=== PATIENT | male | born 1950 | race Caucasian/White ===

== ENCOUNTER 2017-08-13 09:37 | Observation (INO) | payer MEDICARE ==
[2017-08-13] MEDS ORDERED: Sodium Chloride 0.9% 1,000 ML IV ONE (10:20)
--- NOTE | 2017-08-13 10:21 | C.PDOC ---
History Of Present Illness 67 y/o male c/o lower abdominal pain that radiates to the back and groin since yesterday. Patient took ibuprofen with no relief. Reports a subjective fever and vomiting x4 yesterday. Denies dysuria or diarrhea. No cough or SOB. Time Seen by Provider: 08/13/17 10:14 Chief Complaint (Nursing): Abdominal Pain History Per: Patient History/Exam Limitations: no limitations Onset/Duration Of Symptoms: Days (yesterday) Current Symptoms Are (Timing): Still Present Severity: Mild Quality Of Discomfort: "Pain" Associated Symptoms: Vomiting Recent travel outside of the [place]: No Additional History Per: Patient Past Medical History Reviewed: Historical Data, Nursing Documentation, Vital Signs Vital Signs: Last Vital Signs Temp 98.7 F 08/13/17 13:00 Pulse 60 08/13/17 13:00 Resp 18 08/13/17 13:00 BP 138/77 08/13/17 13:00 Pulse Ox 96 08/13/17 13:55 - Medical History PMH: Depression, Hypercholesterolemia Surgical History: Appendectomy - [facility] Procedures INJECT/INFUSE NEC (11/16/13) Family History: States: Unknown Family Hx - Social History Hx Alcohol Use: Yes Hx Substance Use: No - Immunization History Hx Influenza Vaccination: Yes Review Of Systems Except As Marked, All Systems Reviewed And Found Negative. Constitutional: Positive for: Fever (subjective) Respiratory: Negative for: Cough, Shortness of Breath Gastrointestinal: Positive for: Vomiting, Abdominal Pain. Negative for: Diarrhea Genitourinary: Positive for: Scrotal Pain (Radiation to the groin). Negative for: Dysuria Musculoskeletal: Positive for: Back Pain (radiation of pain) Physical Exam - Physical Exam Appears: Non-toxic, No Acute Distress Skin: Warm (to touch), Dry Head: Atraumatic, Normacephalic Oral Mucosa: Moist Throat: Normal, No Erythema Neck: No Midline Cervical Tenderness, No Paracervical Tenderness, Supple Lymphatic: Normal Exam, No Adenopathy Chest: Symmetrical Cardiovascular: Rhythm Regular, No Murmur, No Other (heaves or thrills) Respiratory: Normal Breath Sounds, No Rales, No Rhonchi, No Wheezing Gastrointestinal/Abdominal: Bowel Sounds ((+) bowel sounds), Soft, Tenderness ( Subjective tenderness to the bilateral lower quadrants), No Guarding Back: No CVA Tenderness Male Genital: Testicular Tenderness (left testicle), Inguinal Tenderness ( tenderness to the epididymis), Circumcised, Other (No hernias noted. normal external inspection) Extremity: Normal ROM, No Pedal Edema, No Other (Clubbing of the lower extremity ) Pulses: Left Dorsalis Pedis: Normal, Right Dorsalis Pedis: Normal Neurological/Psych: Oriented x3 ED Course And Treatment - Laboratory Results Result Diagrams: 08/13/17 10:33 08/13/17 10:33 O2 Sat by Pulse Oximetry: 96 (RA) Pulse Ox Interpretation: Normal - CT Scan/US US testicular Other Rad Studies (CT/US): Interpreted By Me, Read By Radiologist CT/US Interpretation: Testicular US normal. Good flow to both testicles. No evidence of epididymitis. Right hydrocele. CT Abd/Pel w/o Other Rad Studies (CT/US): Interpreted By Me, Read By Radiologist CT/US Interpretation: PROCEDURE: CT Abdomen and Pelvis without Oral or IV contrast. HISTORY: hematuria,abd pain. COMPARISON: None available. TECHNIQUE: Contiguous axial images of the abdomen and pelvis. No oral or IV contrast administered. Coronal and Sagittal reformats generated and reviewed. Radiation dose: Total exam DLP = 657.08 mGy-cm. This CT exam was performed using one or more of the following dose reduction techniques: Automated exposure control, adjustment of the mA and/or kV according to patient size, and/ or use of iterative reconstruction technique. FINDINGS: There is limited evaluation of the solid organs without the administration of IV contrast. LOWER THORAX: Bibasilar atelectasis. There is no visible pleural effusion or pneumothorax. Small hiatal hernia. LIVER: Unremarkable unenhanced appearance. GALLBLADDER AND BILE DUCTS: Unremarkable unenhanced appearance. PANCREAS: Unremarkable unenhanced appearance. SPLEEN: Unremarkable unenhanced appearance. ADRENALS: Unremarkable unenhanced appearance. KIDNEYS AND URETERS: 8 mm mid left ureteral calculus (series 3, image 102) with proximal hydroureteronephrosis. No hydronephrosis or obstructing renal calculus. BLADDER: Mildly thick-walled urinary bladder likely exaggerated by under distension. REPRODUCTIVE: The prostate gland measures approximately 3.8 x 4.7 cm. APPENDIX: No secondary signs of acute appendicitis. BOWEL: The stomach is nondistended. Lack of oral contrast limits evaluation for bowel pathology. The bowel loops appear within normal limits of caliber without evidence of intestinal obstruction. PERITONEUM: No significant free fluid. No definite free air. LYMPH NODES: No bulky lymphadenopathy identified. VASCULATURE: No aortic aneurysm. BONES: No acute osseous abnormality is detected. OTHER FINDINGS: Bilateral fat containing inguinal hernia. Tiny umbilical hernia. IMPRESSION: 8 mm mid left ureteral calculus with proximal hydroureteronephrosis. Mildly thick-walled urinary bladder likely exaggerated by under distension. Bibasilar atelectasis. Small hiatal hernia. Medical Decision Making Medical Decision Making: Impression: * lower abdominal pain that radiates to the back and groin since yesterday. Plans: * Blood labs * Morphine * IV fluids * US testicular * CT Abd/Pel w/o contrast DDx: Lower abdominal pain v.s. Epididymitis Labs results showed some signs of hematuria. CT Abd/Pel w/o contrast ordered to rule out possible stones. Disposition Discussed With DraCmmie: Lavelle Ceron - Disposition Disposition: HOSPITALIZED Disposition Time: 13:54 Condition: FAIR - Clinical Impression Clinical Impression: Ureteral colic, Renal insufficiency, mild - Scribe Statement The provider has reviewed the documentation as recorded by the Scribsegundo [email or web address] All medical record entries made by the Pedro were at my direction and personally dictated by me. I have reviewed the chart and agree that the record accurately reflects my personal performance of the history, physical exam, medical decision making, and the department course for this patient. I have also personally directed, reviewed, and agree with the discharge instructions and disposition.
[2017-08-13] MEDS ORDERED: Sodium Chloride 0.9% 1,000 ML ONE (10:34)
[2017-08-13] MEDS ORDERED: Morphine 4 MG/ML VIAL ONE (10:34)
[2017-08-13 10:38] LABS: BASO % 0.3 % (0.0-2.0); HEMATOCRIT 44.4 % (35.0-51.0); LYMPH % 9.6 % (20.0-40.0); MEAN CELL VOLUME 92.4 fL (80.0-94.0); MEAN CORPUSCULAR HEMOGLOBIN 31.7 pg (27.0-31.0); MEAN CORPUSCULAR HGB CONC 34.3 g/dL (33.0-37.0); MEAN PLATELET VOLUME 7.9 fL (7.2-11.7); PLATELET COUNT 195 K/uL (130-400); RED CELL DISTRIBUTION WIDTH 12.6 % (11.5-14.5); WHITE BLOOD COUNT 10.7 K/uL (4.8-10.8)
[2017-08-13 10:42] LABS: RBC URINE 7 /hpf (0-3); URINE BILIRUBIN NEGATIVE (NEGATIVE); URINE BLOOD 1+ (NEGATIVE); URINE COLOR Yellow (YELLOW); URINE GLUCOSE (UA) 1+ mg/dL (Normal); URINE KETONE NEGATIVE (NEGATIVE); URINE LEUKOCYTE ESTERASE NEG Leu/uL (Negative); URINE PROTEIN NEGATIVE (NEGATIVE); URINE UROBILINOGEN NORMAL mg/dL (0.2-1.0); WBC URINE 1 /hpf (0-5)
[2017-08-13 10:53] LABS: POTASSIUM 4.3 mmol/L (3.6-5.2)
[2017-08-13 10:55] LABS: ALB/GLOB RATIO 1.3 (1.0-2.1); BILIRUBIN,TOTAL 0.7 mg/dL (0.2-1.3)
[2017-08-13 10:56] LABS: CALCIUM 8.9 mg/dl (8.6-10.4)
[2017-08-13 11:04] LABS: NEUTROPHIL 88 % (50-75); TOTAL CELLS COUNTED 100
--- NOTE | 2017-08-13 11:29 | US ---
HISTORY: scrotal pain TECHNIQUE: Realtime sonography through the scrotum with color and doppler flow. COMPARISON: None Available. FINDINGS: RIGHT TESTICLE: Measures 4.4 x 2.1 x 2.9 cm. Homogeneous echotexture. Blood flow is demonstrated. RIGHT EPIDIDYMIS: Measures approximately 1.0 x 0.5 x 1.1 cm. LEFT TESTICLE: Measures 3.7 x 2.2 x 3.1 cm. Homogeneous echotexture. Blood flow is demonstrated. LEFT EPIDIDYMIS: Measures approximately 0.8 x 0.9 x 1.3 cm. HYDROCELE: Small right-sided hydrocele. VARICOCELE: None. OTHER FINDINGS: None. IMPRESSION: Small right-sided hydrocele.
--- NOTE | 2017-08-13 13:18 | CT ---
PROCEDURE: CT Abdomen and Pelvis without Oral or IV contrast. HISTORY: hematuria,abd pain COMPARISON: None available. TECHNIQUE: Contiguous axial images of the abdomen and pelvis. No oral or IV contrast administered. Coronal and Sagittal reformats generated and reviewed. Radiation dose: Total exam DLP = 657.08 mGy-cm. This CT exam was performed using one or more of the following dose reduction techniques: Automated exposure control, adjustment of the mA and/or kV according to patient size, and/or use of iterative reconstruction technique. FINDINGS: There is limited evaluation of the solid organs without the administration of IV contrast. LOWER THORAX: Bibasilar atelectasis. There is no visible pleural effusion or pneumothorax. Small hiatal hernia. LIVER: Unremarkable unenhanced appearance. GALLBLADDER AND BILE DUCTS: Unremarkable unenhanced appearance. PANCREAS: Unremarkable unenhanced appearance. SPLEEN: Unremarkable unenhanced appearance. ADRENALS: Unremarkable unenhanced appearance. KIDNEYS AND URETERS: 8 mm mid left ureteral calculus (series 3, image 102) with proximal hydroureteronephrosis. No hydronephrosis or obstructing renal calculus. BLADDER: Mildly thick-walled urinary bladder likely exaggerated by under distension. REPRODUCTIVE: The prostate gland measures approximately 3.8 x 4.7 cm. APPENDIX: No secondary signs of acute appendicitis. BOWEL: The stomach is nondistended. Lack of oral contrast limits evaluation for bowel pathology. The bowel loops appear within normal limits of caliber without evidence of intestinal obstruction. PERITONEUM: No significant free fluid. No definite free air. LYMPH NODES: No bulky lymphadenopathy identified. VASCULATURE: No aortic aneurysm. BONES: No acute osseous abnormality is detected. OTHER FINDINGS: Bilateral fat containing inguinal hernia. Tiny umbilical hernia. IMPRESSION: 8 mm mid left ureteral calculus with proximal hydroureteronephrosis. Mildly thick-walled urinary bladder likely exaggerated by under distension. Bibasilar atelectasis. Small hiatal hernia.
[2017-08-13] MEDS ORDERED: cefTRIAXone IV 1 gm in Dextros 50 ML IVPB ONE (13:58)
--- NOTE | 2017-08-13 15:52 | CP.PCM.HP ---
<Arianna Spaulding - Last Filed: 08/13/17 17:38> History of Present Illness - History of Present Illness History of Present Illness: History and Physical for Dr. Arshad 67yo male with PmHx of hypercholesterolemia and depression that presented to the ED with lower abdominal and middle lower back pain that started yesterday afternoon. Pt states this is the first time that it occurs. Pt describes the pain as constant, dull, non radiating pain. Lying supine makes the pain better and lying to the side makes it worst. Pt admits to four episodes of non bloody vomiting since yesterday, two episodes happening when taking public transportation and two at home. Pt admits to feeling feverish yesterday. Pt denies fever/chills, chest pain or SOB at time of admission. Pt denies nausea, recent vomiting, diarrhea or constipation. Pt denies any dysuria , urgency, polyuria and hematuria. Pt admits to dull left testicular pain that began yesterday along with lower abdominal and back pain. Pt denies any purulent or bloody discharge from the penis. Pt has not had any food since this morning. PMH:Hypercholesteremia, depression Pshx: Appendectomy (1960s) Meds: Rouvastatin 20mg PO QD, Mirtazine 15mg PO QD, Paroxetine 15 mg PO QD All: NKDA FmHx: Mother (HTN) SocHx: 1/2 pack a day x 25 years. Quitted 10 years ago. social alcohol use, 2-3 shots of whiskeys. denies illicit drug use Present on Admission - Present on Admission Any Indicators Present on Admission: No History of DVT/PE: No History of Uncontrolled Diabetes: No Urinary Catheter: No Decubitus Ulcer Present: No Review of Systems - Constitutional Constitutional: As Per HPI Past Patient History - Past Social History Smoking Status: Never Smoked - CARDIAC Hx Hypercholesterolemia: Yes - PSYCHIATRIC Hx Depression: Yes Hx Substance Use: No - SURGICAL HISTORY Hx Appendectomy: Yes - ANESTHESIA Hx Anesthesia: Yes Hx Anesthesia Reactions: No Meds Allergies/Adverse Reactions: Allergies Allergy/AdvReac Type Severity Reaction Status Date / Time No Known Allergies Allergy Unverified 08/13/17 09:43 Physical Exam - Constitutional Appears: Well, Non-toxic, No Acute Distress - Head Exam Head Exam: ATRAUMATIC, NORMOCEPHALIC - Eye Exam Eye Exam: EOMI, Normal appearance - ENT Exam ENT Exam: Mucous Membranes Moist - Respiratory Exam Respiratory Exam: Clear to Auscultation Bilateral, NORMAL BREATHING PATTERN. absent: Rales, Rhonchi, Wheezes - Cardiovascular Exam Cardiovascular Exam: Bradycardia, +S1, +S2. absent: Rubs - GI/Abdominal Exam GI & Abdominal Exam: Hyperactive Bowel Sounds, Normal Bowel Sounds, Soft. absent: Distended - Exam Exam: Testicular Tenderness (patient is tender around epididymis). absent: Scrotal Swelling, Uretheral Discharge, Bladder Distension - Extremities Exam Extremities exam: Positive for: full ROM. Negative for: pedal edema - Back Exam Back exam: NORMAL INSPECTION. absent: CVA tenderness (L), CVA tenderness (R), paraspinal tenderness - Skin Skin Exam: Dry, Intact, Normal Color, Warm Results - Vital Signs Recent Vital Signs: Last Vital Signs Temp 98.2 F 08/13/17 15:02 Pulse 63 08/13/17 15:02 Resp 19 08/13/17 15:02 BP 142/81 08/13/17 15:02 Pulse Ox 95 08/13/17 15:02 - Labs Result Diagrams: 08/13/17 10:33 08/13/17 10:33 Labs: Laboratory Results - last 24 hr 08/13/17 08/13/17 08/13/17 10:33 10:33 10:33 WBC 10.7 RBC 4.80 Hgb 15.2 Hct 44.4 MCV 92.4 MCH 31.7 H MCHC 34.3 RDW 12.6 Plt Count 195 MPV 7.9 Neut % (Auto) 81.1 H Lymph % (Auto) 9.6 L Branch % (Auto) 9.0 Eos % (Auto) 0.0 Baso % (Auto) 0.3 Neut # 8.7 H Lymph # 1.0 Branch # 1.0 H Eos # 0.0 Baso # 0.0 Neutrophils % (Manual) 88 H Band Neutrophils % 2 Lymphocytes % (Manual) 4 L Monocytes % (Manual) 6 Platelet Estimate Normal RBC Morphology Normal Sodium 130 L Potassium 4.3 Chloride 97 L Carbon Dioxide 23 Anion Gap 14 BUN 21 H Creatinine 1.7 H Est GFR ( Amer) 49 Est GFR (Non-Af Amer) 40 Random Glucose 148 H Calcium 8.9 Total Bilirubin 0.7 AST 32 ALT 42 Alkaline Phosphatase 47 Total Protein 7.0 Albumin 3.9 Globulin 3.1 Albumin/Globulin Ratio 1.3 Lipase 79 Urine Color Yellow Urine Clarity Clear Urine pH 5.0 Ur Specific [place] 1.023 Urine Protein Negative Urine Glucose (UA) 1+ H Urine Ketones Negative Urine Blood 1+ H Urine Nitrate Negative Urine Bilirubin Negative Urine Urobilinogen Normal Ur Leukocyte Esterase Neg Urine WBC (Auto) 1 Urine RBC (Auto) 7 H Assessment & Plan - Assessment and Plan (Free Text) Assessment: Nephrolithiasis CT abdomen/pelvis PO/IV contrast: hydronephrosis, stone in ureter, mild bladder thickenin left Testicular pain Testicular ultrasound Right hydrocele Urinalysis positive f/u urine culture UA 08/13 f/u lipid panel Diet: Low salt Diet Symptom Percocet 5-325 Q4H PRN pain Zofran 4mg IVP Q6H PRN Nausea Prophylaxis Heparin 5000 SC Q12H SCDs when laying in bed, patient can ambulate Arianna Spaulding DO PGY1 - Date & Time Date: 08/13/17 Time: 16:10 <Viri Arshad V - Last Filed: 08/14/17 08:09> Results - Vital Signs Recent Vital Signs: Last Vital Signs Temp 97.2 F L 08/13/17 23:16 Pulse 69 08/13/17 23:16 Resp 20 08/13/17 23:16 BP 150/74 08/13/17 23:16 Pulse Ox 96 08/13/17 23:16 - Labs Result Diagrams: 08/13/17 10:33 08/13/17 10:33 Labs: Laboratory Results - last 24 hr 08/13/17 08/13/17 08/13/17 10:33 10:33 10:33 WBC 10.7 RBC 4.80 Hgb 15.2 Hct 44.4 MCV 92.4 MCH 31.7 H MCHC 34.3 RDW 12.6 Plt Count 195 MPV 7.9 Neut % (Auto) 81.1 H Lymph % (Auto) 9.6 L Branch % (Auto) 9.0 Eos % (Auto) 0.0 Baso % (Auto) 0.3 Neut # 8.7 H Lymph # 1.0 Branch # 1.0 H Eos # 0.0 Baso # 0.0 Neutrophils % (Manual) 88 H Band Neutrophils % 2 Lymphocytes % (Manual) 4 L Monocytes % (Manual) 6 Platelet Estimate Normal RBC Morphology Normal Sodium 130 L Potassium 4.3 Chloride 97 L Carbon Dioxide 23 Anion Gap 14 BUN 21 H Creatinine 1.7 H Est GFR ( Amer) 49 Est GFR (Non-Af Amer) 40 Random Glucose 148 H Calcium 8.9 Total Bilirubin 0.7 AST 32 ALT 42 Alkaline Phosphatase 47 Total Protein 7.0 Albumin 3.9 Globulin 3.1 Albumin/Globulin Ratio 1.3 Lipase 79 Urine Color Yellow Urine Clarity Clear Urine pH 5.0 Ur Specific [place] 1.023 Urine Protein Negative Urine Glucose (UA) 1+ H Urine Ketones Negative Urine Blood 1+ H Urine Nitrate Negative Urine Bilirubin Negative Urine Urobilinogen Normal Ur Leukocyte Esterase Neg Urine WBC (Auto) 1 Urine RBC (Auto) 7 H Attending/Attestation - Attestation I have personally seen and examined this patient.: Yes I have fully participated in the care of the patient.: Yes I have reviewed all pertinent clinical information: Yes Notes (Text): This is late computer entry for 08/13/17. Patient seen, examined, and case discussed with day-time resident. Patient seen in [facility] Bed 1 in the Emergency Room with patient's at bedside on . Patient comes in with associated abdominal pain and nausea and vomitting which seems to be resolved when interviewing patient at bedside. Discussed admitting orders with day-time resident. Start IV fluids Start IV antibiotic Symptom relief Urology consult Assessment/Plan 1) Nephrolithiasis; Ureteral colic * CT abdomen/pelvis w/o PO/IV contrast: 8mm mid left ureteral calculus with proximal hydroureteronephrosis. Mildy thick-walled urinary bladder likely exaggerated by under distension. Bibasilar atelectasis. Small hiatal hernia. * Start NS 100cc/hr * Urology (Dr. Romero) hvac refrigeration technician-->contacted by the emergency room * Rocephin 1 gram IV q daily * Urine culture collected on admission * percocet 5/325 1 tab PO Q 4H PRN pain 2) left Testicular pain * Testicular ultrasound Right hydrocele 3) Abnormal UA * f/u urine culture * Rocephin 1 gram IV q daily 4) History of Lipid Disorder * Lipid panel ordered * c/w home medication: Crestor 20mg POqHS 5) History of Depression * c/w home medications: paroxteine 20mg PO daily and Remeron 15mg PO daily * Denies SI/Denies HI 6) Prophylactic measure * Percocet 5-325 Q4H PRN pain * Zofran 4mg IVP Q6H PRN Nausea * Heparin 5000 SC Q12H * SCDs when laying in bed, patient can ambulate
[2017-08-13 18:45] VITALS: RESP 20
[2017-08-13] MEDS ORDERED: PARoxetine 5 mg Tab PO SCH (22:00)
[2017-08-14] MEDS: Oxycodone/Acetaminophen 5/325 mg Tab PO PRN ×4 (00:23→19:41)
[2017-08-14 07:57] LABS: BASO % 0.3 % (0.0-2.0); EOS % 0.1 % (0.0-4.0); HEMATOCRIT 43.3 % (35.0-51.0); LYMPH # 1.2 K/uL (1.0-4.3); LYMPH % 12.2 % (20.0-40.0); MEAN CELL VOLUME 93.3 fL (80.0-94.0); MEAN CORPUSCULAR HEMOGLOBIN 32.1 pg (27.0-31.0); MEAN CORPUSCULAR HGB CONC 34.4 g/dL (33.0-37.0); MEAN PLATELET VOLUME 8.1 fL (7.2-11.7); RED CELL DISTRIBUTION WIDTH 12.9 % (11.5-14.5); WHITE BLOOD COUNT 9.6 K/uL (4.8-10.8)
[2017-08-14 08:43] LABS: POTASSIUM 4.8 mmol/L (3.6-5.2)
[2017-08-14 08:45] LABS: ALB/GLOB RATIO 1.2 (1.0-2.1); BILIRUBIN,TOTAL 0.8 mg/dL (0.2-1.3); TOTAL PROTEIN 6.9 g/dL (6.3-8.3)
[2017-08-14 08:46] LABS: CALCIUM 8.6 mg/dl (8.6-10.4)
[2017-08-14] MEDS: Sodium Chloride 0.9% 1,000 ML IV SCH ×2 (09:42→18:00)
[2017-08-14] MEDS ORDERED: Influenza Vaccine 60 mcg/0.5 mL SYR (4YR UP) IM ONE (10:00)
--- NOTE | 2017-08-14 14:37 | CP.PCM.PN ---
Addendum entered and electronically signed by Arianna Spaulding DO 08/14/17 15:41: per Dr. Mazariegos urine Na Urine K+ Urine Cr B2 microglobulin, Urine Original Note: <Arianna Spaulding - Last Filed: 08/14/17 14:50> Subjective - Date & Time of Evaluation Date of Evaluation: 08/14/17 Time of Evaluation: 14:28 - Subjective Subjective: Progress note for Dr. Arshad Patient seen and examined at bedside. No acute events overnight. Patient was told of his A1c level and that he diabetic. Patient was explained diet changes and told a diabetic body mechanic apprentice was ordered to speak to him about different options for food. Patient denies, fever, chills, nausea, vomiting. patient admits to back pain and abdominal pain, but not worse than yesterday. Objective - Vital Signs/Intake and Output Vital Signs (last 24 hours): Temp Pulse Resp BP Pulse Ox 98.3 F 69 20 145/77 96 08/14/17 08:06 08/14/17 08:06 08/14/17 08:06 08/14/17 08:06 08/14/17 08:06 Intake and Output: 08/14/17 08/14/17 06:59 18:59 Intake Total 540 Balance 540 - Medications Medications: Current Medications Heparin Sodium (Porcine) (Heparin) 5,000 units SC Q12 [facility] Last Admin: 08/14/17 11:24 Dose: 5,000 units Ceftriaxone Sodium 1 gm/ (Sodium Chloride) 100 mls @ 100 mls/hr IVPB DAILY [facility] Last Admin: 08/14/17 11:25 Dose: 100 mls/hr Sodium Chloride (Sodium Chloride 0.9%) 1,000 mls @ 100 mls/hr IV .Q10H [facility] Last Admin: 08/14/17 09:42 Dose: 100 mls/hr Mirtazapine (Remeron) 15 mg PO HS [facility] Ondansetron HCl (Zofran Tab) 4 mg PO Q6H PRN PRN Reason: Nausea/Vomiting Oxycodone/Acetaminophen (Percocet 5/325 Mg Tab) 1 tab PO Q4H PRN PRN Reason: Pain, moderate (4-7) Stop: 08/16/17 15:48 Last Admin: 08/14/17 07:00 Dose: 1 tab Paroxetine HCl (Paxil) 20 mg PO DAILY [facility] Last Admin: 08/14/17 11:24 Dose: 20 mg Pneumococcal Polyvalent Vaccine (Pneumovax 23 Vaccine) 0.5 ml IM .ONCE ONE Stop: 08/15/17 10:01 Rosuvastatin Calcium (Crestor) 20 mg PO HS [facility] Last Admin: 08/13/17 21:46 Dose: 20 mg Tamsulosin HCl (Flomax) 0.4 mg PO DAILY [facility] Last Admin: 08/14/17 11:24 Dose: 0.4 mg - Labs Labs: 08/14/17 07:47 08/14/17 07:47 - Constitutional Appears: Non-toxic - Head Exam Head Exam: NORMAL INSPECTION - Eye Exam Eye Exam: EOMI, Normal appearance - ENT Exam ENT Exam: Mucous Membranes Moist - Neck Exam Neck Exam: Full ROM - Respiratory Exam Respiratory Exam: NORMAL BREATHING PATTERN. absent: Accessory Muscle Use, Respiratory Distress - Cardiovascular Exam Cardiovascular Exam: REGULAR RHYTHM, +S1, +S2. absent: Bradycardia, Tachycardia - GI/Abdominal Exam GI & Abdominal Exam: Soft. absent: Tenderness - Extremities Exam Extremities Exam: Full ROM, Normal Inspection. absent: Pedal Edema - Neurological Exam Neurological Exam: Alert, Awake, Oriented x3 - Psychiatric Exam Psychiatric exam: Normal Affect, Normal Mood - Skin Skin Exam: Dry, Intact, Normal Color, Warm Assessment and Plan - Assessment and Plan (Free Text) Assessment: Nephrolithiasis CT abdomen/pelvis PO/IV contrast: hydronephrosis, stone in ureter, mild bladder thickening IVF NS @ 100cc/hr 08/14 Renal US: f/u 08/14 Abdominal XRAY Abdominal XRAY Urology consult Dr. Ceron Rocephin 1 gm IVPB QD BUN/Cr 08/14 Nephrology consult Left Testicular pain Testicular ultrasound Right hydrocele Urinalysis positive Urine culture UA 08/13 Lipid panel Diabetes: A1c 6.8 Ham Pumper ordered Nutrition consult 08/14 Nephrology consult Diet: Low Salt Diet Symptom Percocet 5-325 Q4H PRN pain Zofran 4mg IVP Q6H PRN Nausea Prophylaxis Heparin 5000 SC Q12H SCDs when laying in bed, patient can ambulate Arianna Eng, DO PGY1 <Viri Arshad V - Last Filed: 08/15/17 00:40> Objective - Vital Signs/Intake and Output Vital Signs (last 24 hours): Temp Pulse Resp BP Pulse Ox 97.6 F 75 20 156/78 H 94 L 08/15/17 00:01 08/15/17 00:01 08/15/17 00:01 08/15/17 00:01 08/15/17 00:01 Intake and Output: 08/14/17 08/15/17 18:59 06:59 Intake Total 1040 1000 Balance 1040 1000 - Medications Medications: Current Medications Heparin Sodium (Porcine) (Heparin) 5,000 units SC Q12 [facility] Last Admin: 08/14/17 22:11 Dose: 5,000 units Ceftriaxone Sodium 1 gm/ (Sodium Chloride) 100 mls @ 100 mls/hr IVPB DAILY [facility] Last Admin: 08/14/17 11:25 Dose: 100 mls/hr Sodium Chloride (Sodium Chloride 0.9%) 1,000 mls @ 100 mls/hr IV .Q10H [facility] Last Admin: 08/14/17 18:00 Dose: 100 mls/hr Mirtazapine (Remeron) 15 mg PO HS [facility] Last Admin: 08/14/17 22:11 Dose: 15 mg Morphine Sulfate (Morphine) 2 mg IVP Q4H PRN PRN Reason: Pain, severe (8-10) Last Admin: 08/14/17 22:12 Dose: 2 mg Ondansetron HCl (Zofran Tab) 4 mg PO Q6H PRN PRN Reason: Nausea/Vomiting Oxycodone/Acetaminophen (Percocet 5/325 Mg Tab) 1 tab PO Q4H PRN PRN Reason: Pain, moderate (4-7) Stop: 08/16/17 15:48 Last Admin: 08/14/17 19:41 Dose: 1 tab Paroxetine HCl (Paxil) 20 mg PO DAILY [facility] Last Admin: 08/14/17 11:24 Dose: 20 mg Pneumococcal Polyvalent Vaccine (Pneumovax 23 Vaccine) 0.5 ml IM .ONCE ONE Stop: 08/15/17 10:01 Rosuvastatin Calcium (Crestor) 20 mg PO [facility] Last Admin: 08/14/17 22:11 Dose: 20 mg Tamsulosin HCl (Flomax) 0.4 mg PO DAILY [facility] Last Admin: 08/14/17 11:24 Dose: 0.4 mg - Labs Labs: 08/14/17 07:47 08/14/17 18:51 Attending/Attestation - Attestation I have personally seen and examined this patient.: Yes I have fully participated in the care of the patient.: Yes I have reviewed all pertinent clinical information, including history, physical exam and plan: Yes Notes (Text): This is late computer entry for 08/14/17. Patient seen, examined and case discussed with day-time resident. Patient seen this morning. Patient reports right quadrant pain. Patient reports mild nausea. Denies vomitting, Denies chest pain/palpitations, patient reports he is urinating. Discussed with urologist, recommended repeat BMP and KUB xray, pending creatinine to determine if patient warrants in patient-cystoscopy or not Patient is newly diagnosed diabetic, a1c:6.8, telehealth nurse educator/body mechanic apprentice referral; recommend diet and exercise modifications c/w IV fluids, pain control, and IV antibiotic Nephrology on consult help appreciated Assessment/Plan 1) Nephrolithiasis; Ureteral colic * CT abdomen/pelvis w/o PO/IV contrast: 8mm mid left ureteral calculus with proximal hydroureteronephrosis. Mildy thick-walled urinary bladder likely exaggerated by under distension. Bibasilar atelectasis. Small hiatal hernia. * Start NS 100cc/hr * Urology (Dr. Romero) economic research assistant-->help appreciated * Rocephin 1 gram IV q daily * Urine culture (08/13) collected on admission * percocet 5/325 1 tab PO Q 4H PRN pain 2) Left Testicular pain * Testicular ultrasound Right hydrocele 3) Abnormal UA * f/u urine culture * Rocephin 1 gram IV q daily 4) Acute Renal Insufficiency * Patient is newly diagnosed diabetic and nephrolithiasis * Urology (Dr. Romero) economic research assistant-->help appreciated * Nephrology (Dr. Mazariegos) on case-->help appreciated * Monitor BUN/Cr * f/u urine culture 5) History of Lipid Disorder * Lipid panel ordered * c/w home medication: Crestor 20mg POqHS 6) History of Depression * c/w home medications: paroxteine 20mg PO daily and Remeron 15mg PO daily * Denies SI/Denies HI 7) Diabetes, newly diagnosed * a1c: 6.8 * Held off statin given LORRI * Ham Pumper referral * telehealth nurse educator * Accuchecks QAC and HS 8) Prophylactic measure * Percocet 5-325 Q4H PRN pain * Zofran 4mg IVP Q6H PRN Nausea * Heparin 5000 SC Q12H * SCDs when laying in bed, patient can ambulate * NS 100cc/hr
--- NOTE | 2017-08-14 16:29 | US ---
PROCEDURE: Ultrasound of the Kidneys HISTORY: bun/cr increase, nephrolithiasis, COMPARISON: CT abdomen and pelvis without oral or IV contrast performed 08/13/17. TECHNIQUE: Sonogram of the kidneys. FINDINGS: RIGHT KIDNEY: Measures: 10.7 x 5.3 x 5.7 cm. No obstructing calculus or hydronephrosis. 3 mm echogenic focus without clear posterior acoustic shadowing suspected to reflect tiny angio myelolipoma as calculus was not evident on CT performed 08/13/17. LEFT KIDNEY: Measures: 12.1 x 5.7 x 5 .3 cm. Mild hydronephrosis. No obstructing calculus identified. OTHER FINDINGS: None. IMPRESSION: Mild left-sided hydronephrosis. No obstructing calculus identified. 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
--- NOTE | 2017-08-14 16:43 | RAD ---
HISTORY: left mi9d ureteral stone on ct COMPARISON: No prior. FINDINGS: BOWEL: Moderate stool retention right colon. No obstruction. No free air. BONES: Normal. OTHER FINDINGS: 8 mm mid left ureteral calculus previously noted on the management liaison CT exam at the L4 level now projects along the inferior left sacroiliac joint level consistent with interval progression in its course along the left ureter IMPRESSION: 8 mm left ureteral calculus has progressed along the left ureteral course
[2017-08-14 19:04] LABS: POTASSIUM 4.8 mmol/L (3.6-5.2)
[2017-08-14 19:06] LABS: ALB/GLOB RATIO 1.2 (1.0-2.1); BILIRUBIN,TOTAL 0.8 mg/dL (0.2-1.3)
[2017-08-14 19:07] LABS: CALCIUM 8.6 mg/dl (8.6-10.4)
--- NOTE | 2017-08-15 00:15 | CON ---
COMPREHENSIVE UROLOGY CONSULTATION DATE: 08/14/2017 TIME OF CONSULTATION: 01:45 p.m. BRIEF HISTORY: The patient is a 67-year-old male from [place] who comes to [facility] ER with a complaints of right lower back pain requiring admission and evaluation on 08/13/2017. The patient had abdominal and pelvic CT stone survey done, which showed a 8 mm mid left ureteral stone with hydronephrosis proximal to the stone. He denies any prior history of any kidney stones or kidney disease. He denies any dysuria or gross hematuria. He does have past medical history of high cholesterol and is currently on Crestor. He is also on Remeron and Paxil for treatment of depression. PAST MEDICAL HISTORY: Includes an appendectomy done 4 years ago. No history of any tobacco use. FAMILY HISTORY: He has no family history of any kidney stone or kidney disease. No history of cancer including prostate cancer. ALLERGIES: NO KNOWN ALLERGIES OF ANY MEDICATIONS. PHYSICAL EXAMINATION: GENERAL: He is well-developed, well-nourished male. He is alert. He is oriented. VITAL SIGNS: His temperature is 98.3, his pulse was 69, his blood pressure 145/77, his respirations are 20 and his O2 sat on room air was 96%. HEENT: Grossly within normal limits. NECK: Supple. Thyroid not palpable. ABDOMEN: Soft, nondistended, non tender. Currently, no definite CVA tenderness except may be 1+ on the right side. No left CVA tenderness. No suprapubic tenderness. LABORATORY DATA: The patient also had a history of some left testicular pain and scrotal ultrasound also done on admission, showed only a small left hydrocele. Otherwise normal scrotal ultrasound. Microbiology showed a urine culture, which showed no growth and his laboratory evaluation, his WBC on admission 08/13/2017 was 10.7 and his WBC today on 08/14/2017 was 9.6. Today, his hemoglobin 14.9, hematocrit 43.3 and platelet count was 187,000. His chem profile today 08/14/2017, shows a sodium of 133, potassium of 4.8, chloride 100, CO2 of 25, BUN and creatinine of 23 and 1.8 respectively with the GFR of 38 indicating chronic kidney disease, stage III. His BUN and creatinine on admission were 21 and 1.7 respectively and his GFR was 40. His glucose today is 99 and his hemoglobin A1c was 6.8, calcium 8.6, AST 31, ALT 39 and his alkaline phosphatase was 50. His triglyceride level was 85, total cholesterol level was 112, LDL was 41 and HDL was 54. Urinalysis on admission 08/13/2017 showed color was yellow, the clarity was clear, pH was 5.0, specific gravity 1.023, protein was negative, glucose was 1+, ketones were negative, blood was 1+, nitrite was negative, bilirubin was negative, urobilinogen normal and leukocyte esterase was negative. There was 1 wbc and 7 rbc's per high power field. DIAGNOSTIC IMPRESSION: For this patient, 1. Left 8 mm mid ureteral stone with proximal hydronephrosis. 2. Chronic kidney disease, stage III. PLAN: This patient will get a KUB and repeat SMA-7 in the morning to check his kidney function to see if it remains stable. If the creatinine starts to rise or the GFR decreases the patient may need a cystoscopy with a left ureteral stent. Otherwise, the patient is a candidate for straight left renal [facility] at [facility] for his mid ureteral 8 mm stone. Lavelle Ceron MD [facility]
[2017-08-15] MEDS: Sodium Chloride 0.9% 1,000 ML IV SCH ×3 (04:00→13:01)
[2017-08-15 08:04] LABS: BASO % 0.2 % (0.0-2.0); HEMATOCRIT 42.2 % (35.0-51.0); MEAN CELL VOLUME 92.9 fL (80.0-94.0); MEAN CORPUSCULAR HEMOGLOBIN 31.9 pg (27.0-31.0); MEAN CORPUSCULAR HGB CONC 34.4 g/dL (33.0-37.0); MEAN PLATELET VOLUME 8.3 fL (7.2-11.7); MONO # 0.9 K/uL (0.0-0.8); MONO % 8.6 % (0.0-10.0); PLATELET COUNT 179 K/uL (130-400); RED CELL DISTRIBUTION WIDTH 12.7 % (11.5-14.5); WHITE BLOOD COUNT 10.7 K/uL (4.8-10.8)
[2017-08-15 08:07] VITALS: PULSE 76
[2017-08-15 08:27] LABS: POTASSIUM 4.3 mmol/L (3.6-5.2)
[2017-08-15 08:29] LABS: BILIRUBIN,TOTAL 0.8 mg/dL (0.2-1.3)
[2017-08-15 08:30] LABS: ALB/GLOB RATIO 1.2 (1.0-2.1); CALCIUM 8.3 mg/dl (8.6-10.4); MAGNESIUM 1.8 mg/dL (1.6-2.3)
[2017-08-15 08:38] LABS: CREATININE, RANDOM URINE 104.4 mg/dL
--- NOTE | 2017-08-15 09:22 | CP.PCM.PN ---
Subjective - Date & Time of Evaluation Date of Evaluation: 08/15/17 Time of Evaluation: 09:22 Objective - Vital Signs/Intake and Output Vital Signs (last 24 hours): Temp Pulse Resp BP Pulse Ox 98.6 F 76 20 167/76 H 95 08/15/17 08:06 08/15/17 08:06 08/15/17 08:06 08/15/17 08:06 08/15/17 08:06 Intake and Output: 08/15/17 08/15/17 06:59 18:59 Intake Total 1800 Output Total 950 Balance 850 - Medications Medications: Current Medications Heparin Sodium (Porcine) (Heparin) 5,000 units SC Q12 [facility] Last Admin: 08/14/17 22:11 Dose: 5,000 units Ceftriaxone Sodium 1 gm/ (Sodium Chloride) 100 mls @ 100 mls/hr IVPB DAILY [facility] Last Admin: 08/14/17 11:25 Dose: 100 mls/hr Sodium Chloride (Sodium Chloride 0.9%) 1,000 mls @ 100 mls/hr IV .Q10H [facility] Last Admin: 08/15/17 05:51 Dose: 100 mls/hr Mirtazapine (Remeron) 15 mg PO HS [facility] Last Admin: 08/14/17 22:11 Dose: 15 mg Morphine Sulfate (Morphine) 2 mg IVP Q4H PRN PRN Reason: Pain, severe (8-10) Last Admin: 08/15/17 05:43 Dose: 2 mg Ondansetron HCl (Zofran Tab) 4 mg PO Q6H PRN PRN Reason: Nausea/Vomiting Oxycodone/Acetaminophen (Percocet 5/325 Mg Tab) 1 tab PO Q4H PRN PRN Reason: Pain, moderate (4-7) Stop: 08/16/17 15:48 Last Admin: 08/14/17 19:41 Dose: 1 tab Paroxetine HCl (Paxil) 20 mg PO DAILY [facility] Last Admin: 08/14/17 11:24 Dose: 20 mg Pneumococcal Polyvalent Vaccine (Pneumovax 23 Vaccine) 0.5 ml IM .ONCE ONE Stop: 08/15/17 10:01 Rosuvastatin Calcium (Crestor) 20 mg PO HS [facility] Last Admin: 08/14/17 22:11 Dose: 20 mg Tamsulosin HCl (Flomax) 0.4 mg PO DAILY [facility] Last Admin: 08/14/17 11:24 Dose: 0.4 mg - Labs Labs: 08/15/17 07:48 08/15/17 07:48 - Constitutional Appears: Non-toxic - Head Exam Head Exam: NORMAL INSPECTION - Eye Exam Eye Exam: EOMI, Normal appearance - ENT Exam ENT Exam: Mucous Membranes Moist - Neck Exam Neck Exam: Full ROM - Respiratory Exam Respiratory Exam: NORMAL BREATHING PATTERN. absent: Accessory Muscle Use, Respiratory Distress - Cardiovascular Exam Cardiovascular Exam: REGULAR RHYTHM, +S1, +S2. absent: Bradycardia, Tachycardia - GI/Abdominal Exam GI & Abdominal Exam: Distended, Soft, Tenderness (patient has pain on deep palpation. no rebound tenderness). absent: Guarding, Rigid - Extremities Exam Extremities Exam: Full ROM, Normal Inspection. absent: Pedal Edema - Back Exam Back Exam: Full ROM Additional comments: tenderness to palpation of the left lumbar region - Neurological Exam Neurological Exam: Alert, Awake, Oriented x3 - Psychiatric Exam Psychiatric exam: Normal Affect, Normal Mood - Skin Skin Exam: Dry, Intact, Normal Color, Warm Assessment and Plan - Assessment and Plan (Free Text) Assessment: Patient is for discharge today per Urology to [facility]. Assessment: Nephrolithiasis CT abdomen/pelvis PO/IV contrast: hydronephrosis, stone in ureter, mild bladder thickening IVF NS @ 100cc/hr 08/14 Renal US: f/u 08/14 Abdominal XRAY Abdominal XRAY Urology consult Dr. Osmany Godinez 1 gm IVPB QD f/u urology recommendations: patient can go home and [facility]. The center is aware of patient already BUN/Cr elevated, trending down 08/14 Nephrology consult Left Testicular pain Testicular ultrasound Right hydrocele Urinalysis positive Urine culture UA 08/13 Lipid panel Constipation lactulose 30ml once Miralax 17 gm once Diabetes: A1c 6.8 Mechanical Assembly ordered Nutrition consult 08/14 Nephrology consult Diet: Low Salt Diet Symptom Percocet 5-325 Q4H PRN pain Zofran 4mg IVP Q6H PRN Nausea Prophylaxis Heparin 5000 SC Q12H SCDs when laying in bed, patient can ambulate Arianna Eng, DO PGY1
[2017-08-15 09:58] LABS: BASOPHIL 2 % (0-2); NEUTROPHIL 78 % (50-75); TOTAL CELLS COUNTED 100
--- NOTE | 2017-08-15 09:59 | CP.PCM.CON ---
History of Present Illness - History of Present Illness History of Present Illness: 67 yo M w/ pmh of hyperlipidemia, nephrolithiasis, presented to ED with onset of nausea/vomting and bilateral lower back pain since past 2 days; found to have L ureteral stone and mild/moderate hydronephrosis; nephrology being consulted for renal insufficiency; Patient reports having had the above symptoms previously, occuring every "7 months"; this time, low back pain was bilateral and radiated forward to groin area; also with several episodes of vomiting but able to consume some PO intake today; at time of encounter, patient was in severe pain despite having received percocet shortly before; Patient denies any dysuria or change in urinary frequency; denies any shortness of breath or palpitations but reports chest pain on coughing; Patient reports being told about having kidney stones many years ago but has not had f/u in that regard; he otherwise follows regularly with his PMD (Dr. Myron Dyson) with last visit within past few weeks at which time everything was reportedly unremarkable; Review of Systems - Constitutional Constitutional: Fever. absent: Chills - EENT Eyes: absent: Change in Vision Nose/Mouth/Throat: absent: Sore Throat - Cardiovascular Cardiovascular: absent: Dyspnea, Dyspnea on Exertion, Palpitations - Respiratory Respiratory: Cough - Gastrointestinal Gastrointestinal: As Per HPI - Genitourinary Genitourinary: As Per HPI - Reproductive: Male Additional comments: pain radiating to L testicle; - Musculoskeletal Musculoskeletal: absent: Arthralgias - Neurological Neurological: absent: Dizziness Past Patient History - Past Medical History & Family History Past Medical History?: Yes - Past Social History Smoking Status: Never Smoked - CARDIAC Hx Hypercholesterolemia: Yes - MUSCULOSKELETAL/RHEUMATOLOGICAL Hx Falls: No - PSYCHIATRIC Hx Depression: Yes Hx Substance Use: No - SURGICAL HISTORY Hx Appendectomy: Yes - ANESTHESIA Hx Anesthesia: Yes Hx Anesthesia Reactions: No Meds Allergies/Adverse Reactions: Allergies Allergy/AdvReac Type Severity Reaction Status Date / Time No Known Allergies Allergy Unverified 08/13/17 09:43 - Medications Medications: Current Medications Heparin Sodium (Porcine) (Heparin) 5,000 units SC Q12 [facility] Last Admin: 08/14/17 22:11 Dose: 5,000 units Ceftriaxone Sodium 1 gm/ (Sodium Chloride) 100 mls @ 100 mls/hr IVPB DAILY [facility] Last Admin: 08/14/17 11:25 Dose: 100 mls/hr Sodium Chloride (Sodium Chloride 0.9%) 1,000 mls @ 100 mls/hr IV .Q10H [facility] Last Admin: 08/15/17 05:51 Dose: 100 mls/hr Mirtazapine (Remeron) 15 mg PO [facility] Last Admin: 08/14/17 22:11 Dose: 15 mg Ondansetron HCl (Zofran Tab) 4 mg PO Q6H PRN PRN Reason: Nausea/Vomiting Oxycodone/Acetaminophen (Percocet 5/325 Mg Tab) 1 tab PO Q4H PRN PRN Reason: Pain, moderate (4-7) Stop: 08/16/17 15:48 Last Admin: 08/14/17 19:41 Dose: 1 tab Paroxetine HCl (Paxil) 20 mg PO DAILY [facility] Last Admin: 08/14/17 11:24 Dose: 20 mg Pneumococcal Polyvalent Vaccine (Pneumovax 23 Vaccine) 0.5 ml IM .ONCE ONE Stop: 08/15/17 10:01 Rosuvastatin Calcium (Crestor) 20 mg PO [facility] Last Admin: 08/14/17 22:11 Dose: 20 mg Tamsulosin HCl (Flomax) 0.4 mg PO DAILY [facility] Last Admin: 08/14/17 11:24 Dose: 0.4 mg Physical Exam - Constitutional Appears: In Acute Distress - Head Exam Head Exam: NORMAL INSPECTION - Eye Exam Eye Exam: Normal appearance. absent: Scleral icterus - ENT Exam ENT Exam: Mucous Membranes Moist - Respiratory Exam Respiratory Exam: Clear to Auscultation Bilateral, NORMAL BREATHING PATTERN. absent: Rales, Rhonchi, Wheezes, Respiratory Distress - Cardiovascular Exam Cardiovascular Exam: REGULAR RHYTHM, +S1, +S2 - GI/Abdominal Exam GI & Abdominal Exam: Soft. absent: Distended, Tenderness - Exam Additional comments: No CVA tenderness; - Extremities Exam Extremities exam: Positive for: pedal pulses present Additional comments: no leg edema; - Neurological Exam Neurological exam: Alert, Altered, Oriented x3 - Skin Skin Exam: Normal Color, Warm Results - Vital Signs Recent Vital Signs: Last Vital Signs Temp 98.6 F 08/15/17 08:06 Pulse 76 08/15/17 08:06 Resp 20 08/15/17 08:06 BP 167/76 H 08/15/17 08:06 Pulse Ox 95 08/15/17 08:06 - Labs Result Diagrams: 08/15/17 07:48 08/15/17 07:48 Labs: Laboratory Results - last 24 hr 08/14/17 08/14/17 08/14/17 12:02 16:40 18:51 WBC RBC Hgb Hct MCV MCH MCHC RDW Plt Count MPV Neut % (Auto) Lymph % (Auto) [place] % (Auto) Eos % (Auto) Baso % (Auto) Neut # Lymph # [place] # Eos # Baso # Sodium 132 Potassium 4.8 Chloride 98 Carbon Dioxide 24 Anion Gap 14 BUN 20 Creatinine 1.8 H Est GFR ( Amer) 46 Est GFR (Non-Af Amer) 38 POC Glucose (mg/dL) 99 129 H Random Glucose 116 H Calcium 8.6 Magnesium Total Bilirubin 0.8 AST 33 ALT 43 Alkaline Phosphatase 50 Total Protein 7.0 Albumin 3.9 Globulin 3.2 Albumin/Globulin Ratio 1.2 Ur Random Creatinine U Random Total Protein Ur Random Sodium Ur Random Potassium Urine Microalbumin 08/14/17 08/15/17 08/15/17 21:54 06:55 07:48 WBC 10.7 RBC 4.54 Hgb 14.5 Hct 42.2 MCV 92.9 MCH 31.9 H MCHC 34.4 RDW 12.7 Plt Count 179 MPV 8.3 Neut % (Auto) 82.2 H Lymph % (Auto) 9.0 L [place] % (Auto) 8.6 Eos % (Auto) 0.0 Baso % (Auto) 0.2 Neut # 8.8 H Lymph # 1.0 [place] # 0.9 H Eos # 0.0 Baso # 0.0 Sodium Potassium Chloride Carbon Dioxide Anion Gap BUN Creatinine Est GFR ( Amer) Est GFR (Non-Af Amer) POC Glucose (mg/dL) 155 H 123 H Random Glucose Calcium Magnesium Total Bilirubin AST ALT Alkaline Phosphatase Total Protein Albumin Globulin Albumin/Globulin Ratio Ur Random Creatinine U Random Total Protein Ur Random Sodium Ur Random Potassium Urine Microalbumin 08/15/17 08/15/17 08/15/17 07:48 08:16 08:16 WBC RBC Hgb Hct MCV MCH MCHC RDW Plt Count MPV Neut % (Auto) Lymph % (Auto) [place] % (Auto) Eos % (Auto) Baso % (Auto) Neut # Lymph # [place] # Eos # Baso # Sodium 130 L Potassium 4.3 Chloride 97 L Carbon Dioxide 24 Anion Gap 13 BUN 19 Creatinine 1.6 H Est GFR ( Amer) 52 Est GFR (Non-Af Amer) 43 POC Glucose (mg/dL) Random Glucose 118 H Calcium 8.3 L Magnesium 1.8 Total Bilirubin 0.8 AST 42 ALT 50 Alkaline Phosphatase 54 Total Protein 7.0 Albumin 3.8 Globulin 3.2 Albumin/Globulin Ratio 1.2 Ur Random Creatinine 104.4 U Random Total Protein 9.0 Ur Random Sodium 143 Ur Random Potassium 50.5 Urine Microalbumin 7.5 - Imaging and Cardiology US - abdomen Status: Image reviewed by me Additional comment: Renal US - relatively preserved echogenicity bilaterally; Assessment & Plan (1) Renal insufficiency Assessment and Plan: Baseline renal function unclear, however, unilateral obstructive uropathy (even if severe, which is not the case here) should generally not give LORRI; renal US showing relatively preserved echogenicity of kidneys which implies CKD is relatively mild; -checking random urine for protein, microalbumin and creatinine -further workup pending the above; -avoid NSAIDS for now Status: Acute (2) Nephrolithiasis Assessment and Plan: 8mm ureteral stone with accompanying mild hydronephrosis; possibility that stone will pass spontaneously but due to relatively large size and pain that patient is suffering, should obtain urologic consultation if symptoms remain in morning; -continue IVF w/ NS at 100 cc/hr -agree with flomax 0.4 mg daily -agree with percocet for moderate pain, adding morphine 2 mg IVP q4h prn for severe pain; Status: Acute (3) Diabetes Assessment and Plan: Appears to be newly diagnosed with mild elevation of hgbA1C; doubt that renal insufficiency is due to DM with neg protein on UA but will check for microalbuminuria; Status: Acute (4) Hematuria Assessment and Plan: 1+ on UA but can be explained by ureteral stone; dipstick neg for albumin; monitor; Status: Acute
[2017-08-15] MEDS ORDERED: Pneumococcal 23-Valent Vaccine IM ONE ×2 (10:00→11:30)
[2017-08-15] MEDS ORDERED: Magnesium Citrate Oral SOL (300 ml) PO ONE (11:18)
[2017-08-15] MEDS ORDERED: POLYETHYLENE GLYCOL 3350 17 GM/Dose PACKET PO ONE (11:49)
--- NOTE | 2017-08-15 12:39 | PN ---
DATE: 08/15/2017 SUBJECTIVE: The patient was completely comfortable this morning, voiding urine well. No complain of any abdominal pain. No renal colic. No dysuria or gross hematuria. PHYSICAL EXAMINATION: ABDOMEN: Soft, nondistended, nontender. No CVA tenderness. No suprapubic tenderness. VITAL SIGNS: Temperature is 98.6, pulse is 76, blood pressure 157/76, and respirations are 20. His O2 saturation on room air was 95%. FOLLOWUP LABORATORY EVALUATION: This morning, 08/15/2017, shows CBC with WBC of 10.7, hemoglobin of 14.5, hematocrit of 42.2. He has a platelet count of only 79,000. His chem profile shows a reduced BUN at 19, and also reduced creatinine at 1.6 down from 1.8 with fluid hydration. His GFR is now 52 up from 46. His random glucose is 198. DIAGNOSTIC IMPRESSION: Left mid 8 mm ureteral stone. PLAN: For this patient is to discharge the patient home on Flomax 0.4 mg daily and the patient to followup next week and to be scheduled for left mid ureteral ESWL at [facility]. Lavelle Ceron MD
--- NOTE | 2017-08-15 16:44 | CP.PCM.PN ---
Subjective - Date & Time of Evaluation Date of Evaluation: 08/15/17 Time of Evaluation: 15:45 - Subjective Subjective: 67 yo M w/ pmh of hyperlidpidemia and remote nephrolithiasis, presented with bilateral low back pain and admitted with ureteral stone, LORRI; Patient's back pain improved; was constipated; ready to go home; Objective - Vital Signs/Intake and Output Vital Signs (last 24 hours): Temp Pulse Resp BP Pulse Ox 98.6 F 76 20 167/76 H 95 08/15/17 08:06 08/15/17 08:06 08/15/17 08:06 08/15/17 08:06 08/15/17 08:06 Intake and Output: 08/15/17 08/15/17 06:59 18:59 Intake Total 1800 1150 Output Total 950 Balance 850 1150 - Medications Medications: Current Medications Heparin Sodium (Porcine) (Heparin) 5,000 units SC Q12 [facility] Last Admin: 08/15/17 10:07 Dose: 5,000 units Ceftriaxone Sodium 1 gm/ (Sodium Chloride) 100 mls @ 100 mls/hr IVPB DAILY [facility] Last Admin: 08/15/17 10:06 Dose: 100 mls/hr Sodium Chloride (Sodium Chloride 0.9%) 1,000 mls @ 100 mls/hr IV .Q10H [facility] Last Admin: 08/15/17 13:01 Dose: Not Given Mirtazapine (Remeron) 15 mg PO HS [facility] Last Admin: 08/14/17 22:11 Dose: 15 mg Ondansetron HCl (Zofran Tab) 4 mg PO Q6H PRN PRN Reason: Nausea/Vomiting Last Admin: 08/15/17 15:08 Dose: 4 mg Oxycodone/Acetaminophen (Percocet 5/325 Mg Tab) 1 tab PO Q4H PRN PRN Reason: Pain, moderate (4-7) Stop: 08/16/17 15:48 Last Admin: 08/14/17 19:41 Dose: 1 tab Paroxetine HCl (Paxil) 20 mg PO DAILY [facility] Last Admin: 08/15/17 10:07 Dose: 20 mg Rosuvastatin Calcium (Crestor) 20 mg PO HS [facility] Last Admin: 08/14/17 22:11 Dose: 20 mg Tamsulosin HCl (Flomax) 0.4 mg PO DAILY [facility] Last Admin: 08/15/17 10:06 Dose: 0.4 mg - Labs Labs: 08/15/17 07:48 08/15/17 07:48 - Constitutional Appears: Non-toxic, No Acute Distress - Head Exam Head Exam: NORMAL INSPECTION - Eye Exam Eye Exam: Normal appearance. absent: Scleral icterus - ENT Exam ENT Exam: Mucous Membranes Moist - Respiratory Exam Respiratory Exam: Clear to Ausculation Bilateral. absent: Rales, Rhonchi, Wheezes, Respiratory Distress - Cardiovascular Exam Cardiovascular Exam: REGULAR RHYTHM, +S1, +S2 - GI/Abdominal Exam GI & Abdominal Exam: Soft. absent: Tenderness - Extremities Exam Additional comments: no leg edema; - Neurological Exam Neurological Exam: Alert, Awake - Psychiatric Exam Psychiatric exam: Normal Affect - Skin Skin Exam: Normal Color, Warm Assessment and Plan (1) Renal insufficiency Assessment & Plan: LORRI on very mild CKD; baseline serum creat 1.1 in 06/2017, increased to 1.8 on presentation; somewhat improved today; non-proteinuric kidney disease; NSAID use may have contributed to LORRI; -patient advised to use NSAIDS sparingly Status: Acute (2) Nephrolithiasis Assessment & Plan: L ureteral stone; pain is improved and patient to have urology f/u as outpatient for possible ESWL; -counseled on drinking enough water to achieve 2L urine output daily; -low Na diet; -continue tamsulosin; Status: Acute (3) Diabetes Assessment & Plan: No evidence of diabetic nephropathy at this point but needs to maintain adequate blood sugar control to avoid microvascular changes of DM; Status: Acute (4) Hematuria Assessment & Plan: Likely due to ureteral stone, no proteinuria which is re-assuring; Status: Acute
[2017-08-15 17:30] VITALS: BP 156/83; TEMP 98.4; O2SAT 93
--- NOTE | 2017-08-15 23:00 | CP.PCM.DIS ---
Provider - Provider Date of Admission: 08/13/17 13:48 Attending physician: Viri Arshad DO Consults: Urology Consult: Dr. Ceron Nephrology Consult: Dr. Mazariegos Time Spent in preparation of Discharge (in minutes): 35 Hospital Course - Lab Results Lab Results: Micro Results 08/13/17 10:20 Urine Urine Culture - Final No Growth (<1,000 CFU/ML) Most Recent Lab Values WBC 10.7 K/uL (4.8-10.8) 08/15/17 07:48 RBC 4.54 Mil/uL (4.40-5.90) 08/15/17 07:48 Hgb 14.5 g/dL (12.0-18.0) 08/15/17 07:48 Hct 42.2 % (35.0-51.0) 08/15/17 07:48 MCV 92.9 fL (80.0-94.0) 08/15/17 07:48 MCH 31.9 pg (27.0-31.0) H 08/15/17 07:48 MCHC 34.4 g/dL (33.0-37.0) 08/15/17 07:48 RDW 12.7 % (11.5-14.5) 08/15/17 07:48 Plt Count 179 K/uL (130-400) 08/15/17 07:48 MPV 8.3 fL (7.2-11.7) 08/15/17 07:48 Neut % (Auto) 82.2 % (50.0-75.0) H 08/15/17 07:48 Lymph % (Auto) 9.0 % (20.0-40.0) L 08/15/17 07:48 [place] % (Auto) 8.6 % (0.0-10.0) 08/15/17 07:48 Eos % (Auto) 0.0 % (0.0-4.0) 08/15/17 07:48 Baso % (Auto) 0.2 % (0.0-2.0) 08/15/17 07:48 Neut # 8.8 K/uL (1.8-7.0) H 08/15/17 07:48 Lymph # 1.0 K/uL (1.0-4.3) 08/15/17 07:48 [place] # 0.9 K/uL (0.0-0.8) H 08/15/17 07:48 Eos # 0.0 K/uL (0.0-0.7) 08/15/17 07:48 Baso # 0.0 K/uL (0.0-0.2) 08/15/17 07:48 Neutrophils % (Manual) 78 % (50-75) H 08/15/17 07:48 Band Neutrophils % 2 % (0-2) 08/15/17 07:48 Lymphocytes % (Manual) 11 % (20-40) L 08/15/17 07:48 Monocytes % (Manual) 7 % (0-10) 08/15/17 07:48 Basophils % (Manual) 2 % (0-2) 08/15/17 07:48 Platelet Estimate Normal (NORMAL) 08/15/17 07:48 RBC Morphology Normal 08/13/17 10:33 Sodium 130 mmol/L (132-148) L 08/15/17 07:48 Potassium 4.3 mmol/L (3.6-5.2) 08/15/17 07:48 Chloride 97 mmol/L (98-107) L 08/15/17 07:48 Carbon Dioxide 24 mmol/L (22-30) 08/15/17 07:48 Anion Gap 13 (10-20) 08/15/17 07:48 BUN 19 mg/dL (9-20) 08/15/17 07:48 Creatinine 1.6 mg/dL (0.8-1.5) H 08/15/17 07:48 Est GFR ( Amer) 52 08/15/17 07:48 Est GFR (Non-Af Amer) 43 08/15/17 07:48 POC Glucose (mg/dL) 124 mg/dL (65-110) H 08/15/17 16:22 Random Glucose 118 mg/dL (75-110) H 08/15/17 07:48 Hemoglobin A1c 6.8 % (4.2-6.5) H 08/14/17 07:47 Calcium 8.3 mg/dl (8.6-10.4) L 08/15/17 07:48 Magnesium 1.8 mg/dL (1.6-2.3) 08/15/17 07:48 Total Bilirubin 0.8 mg/dL (0.2-1.3) 08/15/17 07:48 AST 42 U/L (17-59) 08/15/17 07:48 ALT 50 U/L (21-72) 08/15/17 07:48 Alkaline Phosphatase 54 U/L (38-126) 08/15/17 07:48 Total Protein 7.0 g/dL (6.3-8.3) 08/15/17 07:48 Albumin 3.8 g/dL (3.5-5.0) 08/15/17 07:48 Globulin 3.2 gm/dL (2.2-3.9) 08/15/17 07:48 Albumin/Globulin Ratio 1.2 (1.0-2.1) 08/15/17 07:48 Triglycerides 85 mg/dL (0-149) 08/14/17 07:47 Cholesterol 112 mg/dL (0-199) 08/14/17 07:47 LDL Cholesterol Direct 41 mg/dL (0-129) 08/14/17 07:47 HDL Cholesterol 54 mg/dL (30-70) 08/14/17 07:47 Lipase 79 U/L (23-300) 08/13/17 10:33 Urine Color Yellow (YELLOW) 08/13/17 10:33 Urine Clarity Clear (Clear) 08/13/17 10:33 Urine pH 5.0 (5.0-8.0) 08/13/17 10:33 Ur Specific [place] 1.023 (1.003-1.030) 08/13/17 10:33 Urine Protein Negative mg/dL (NEGATIVE) 08/13/17 10:33 Urine Glucose (UA) 1+ mg/dL (Normal) H 08/13/17 10:33 Urine Ketones Negative mg/dL (NEGATIVE) 08/13/17 10:33 Urine Blood 1+ (NEGATIVE) H 08/13/17 10:33 Urine Nitrate Negative (NEGATIVE) 08/13/17 10:33 Urine Bilirubin Negative (NEGATIVE) 08/13/17 10:33 Urine Urobilinogen Normal mg/dL (0.2-1.0) 08/13/17 10:33 Ur Leukocyte Esterase Neg [place]/uL (Negative) 08/13/17 10:33 Urine WBC (Auto) 1 /hpf (0-5) 08/13/17 10:33 Urine RBC (Auto) 7 /hpf (0-3) H 08/13/17 10:33 Ur Random Creatinine 104.4 mg/dL 08/15/17 08:16 U Random Total Protein 9.0 mg/dL (0.0-12.0) 08/15/17 08:16 Ur Random Sodium 143 mmol/L 08/15/17 08:16 Ur Random Potassium 50.5 mmol/L 08/15/17 08:16 Urine Microalbumin 7.5 mg/L (0.0-16.6) 08/15/17 08:16 - Hospital Course Hospital Course: Discharge summary for Dr. Arshad 67M with PMH hypercholesterolemia and depression that presented to the ED with lower abdominal and middle lower back pain that started yesterday afternoon. Patient states that it's the first time. Patient describes the pain as constant , dull, non radiating pain. Lying supine makes the pain better and lying to the side makes it worst. Patient admits to four episodes of non bloody vomiting since yesterday, two episodes happening when taking public transportation and two at home. Pt admits to feeling feverish yesterday. Patient denies fever/ chills, chest pain or SOB at time of admission. Patient denies nausea, recent vomiting, diarrhea or constipation. Patient denies any dysuria, urgency, polyuria and hematuria. Patient admits to dull left testicular pain that began yesterday along with lower abdominal and back pain. Patient denies any purulent or bloody discharge from the penis. Patient has not had any food since this morning. Hospital course: Patient was found to have Hgb A1c of 6.8. Patient was instructed about diabetes and advised to consider lifestyle changes. Patient was treated with Rocephin 1gm IVPB during hospital stay to cover for possible infection due to the nephrolith in the left ureter. CT abdomen and pelvis showed hydronephrosis due to 8mm nephrolith. Urology was consulted and patient was told to [facility] upon discharge. Patient seen and examined at bedside. No acute events overnight. Patient states he's urinating well. no bowel movement since one week. Patient still having lower abdominal and lower back pain.. Patient was given lactulose and miralax today. Patient had OMT mesenteric lifting, colonic stimulation to promote bowel movements. patient any abdominal surgeries, history of aneurysm, intestinal cancers. Patient tolerated the procedure well. Patient was able to pass flatus prior and after the soft tissue treatments. Patient is to follow up with primary doctor about bowel movements. Urology okayed patient to go home with Miralax and cipro 500mg POBID for 5 days before seeing urology Patient medically stable for discharge Cipro 500mg POBID start 5 days before seeing Urologist [facility] Follow up with Urologist in 1 week for [facility] Follow up with primary care doctor in 1week for follow up with bowel movements and constipation. Please don't take magnesium citrate patient cant take miralax over the counter for constipation. eat food high in fiber. stay hydrated - Date & Time of H&P Date of H&P: 08/15/17 Time of H&P: 23:09 Discharge Exam - Head Exam Head Exam: NORMAL INSPECTION - Eye Exam Eye Exam: EOMI, Normal appearance - ENT Exam ENT Exam: Mucous Membranes Moist - Neck Exam Neck exam: Full Rom - Respiratory Exam Respiratory Exam: NORMAL BREATHING PATTERN. absent: Accessory Muscle Use, Respiratory Distress - Cardiovascular Exam Cardiovascular Exam: REGULAR RHYTHM, +S1, +S2 - GI/Abdominal Exam GI & Abdominal Exam: Distended, Tenderness (right lower quadrant and left lower quadrant. ) - Back Exam Back exam: tenderness. absent: CVA tenderness (L), CVA tenderness (R) Additional comments: lumbar back upon palpation - Neurological Exam Neurological exam: Alert, Normal Gait, Oriented x3 - Psychiatric Exam Psychiatric exam: Normal Affect, Normal Mood - Skin Skin Exam: Dry, Intact, Normal Color, Warm Discharge Plan - Discharge Medications Prescriptions: Ciprofloxacin [Cipro] 500 mg PO BID 5 Days tab - Follow Up Plan Condition: FAIR Disposition: HOME/ ROUTINE Instructions: Ciprofloxacin (By mouth), Renal Colic (GEN) Additional Instructions: Patient medically stable for discharge Cipro 500mg POBID start 5 days before seeing Urologist [facility] Follow up with Urologist in 1 week for [facility] Follow up with primary care doctor in 1week for follow up with bowel movements and constipation. Please don't take magnesium citrate patient cant take miralax over the counter for constipation. eat food high in fiber. stay hydrated Referrals: Lavelle Ceron MD [Staff Provider] -
== END 2017-08-15 18:14 | disposition home or self-care (01) ==
LOC: C.ER 09:37 → C.9E 13:48 → C.3T 16:25
PROVIDERS: ADMIT Hospitalist; ATTEND Hospitalist
DX: N13.2 Hydronephrosis with renal and ureteral calculous obstruction (principal); N17.9 Acute kidney failure, unspecified; K59.00 Constipation, unspecified; J98.11 Atelectasis; K44.9 Diaphragmatic hernia without obstruction or gangrene; N43.3 Hydrocele, unspecified; N45.1 Epididymitis; N18.3 Chronic kidney disease, stage 3 (moderate); E78.5 Hyperlipidemia, unspecified; E11.22 Type 2 diabetes mellitus with diabetic chronic kidney disease
CPT/HCPCS: 36415; 74000; 74176; 76770; 76870; 80053; 80061; 81001; 82043; 82570; 82948; 83036; 83690; 83735; 84133; 84155; 84300; 85025; 87086; 90732; 96361; 96365; 96366; 96372; 96375; 96376; 99285; G0009; G0378; J0696; J1644; J1885; J2270; J7040